=== PATIENT | female | born 1995 | race Caucasian/White ===

== ENCOUNTER 2021-02-08 08:28 | Outpatient (CLI) | payer MEDICAID ==
--- NOTE | 2021-02-08 10:10 | XRay Report ---
CHEST 2 VIEWS INDICATION: MORBID OBESITY. Preoperative evaluation COMPARISON: None FINDINGS: SUPPORT DEVICES: None. HEART: Within normal limits. LUNGS/PLEURA: No acute air space or interstitial disease. No pneumothorax. ADDITIONAL FINDINGS: None. IMPRESSION: 1. No acute findings. Signer Name: Adam Cunha MD Signed: 02/08/2021 10:05 AM Workstation Name: [id number]
--- NOTE | 2021-02-08 10:10 | Fluoroscopy Report ---
. Barium swallow Indication: MORBID OBESITY. Technique: Single and double contrast barium technique utilized to evaluate the esophagus. Findings: No mucosal irregularity, mass, mass effect, or critical stenosis. There were no abnormal tertiary c ontractions as seen with dysmotility. There was trace gastroesophageal reflux reaching the distal eso phagus. Impression: Trace gastroesophageal reflux. Fluoroscopic time: 0.4 minutes Number of fluoroscopic images: 9 Signer Name: Adam Cunha MD Signed: 02/08/2021 10:06 AM Workstation Name: [id number]
== END 2021-02-08 08:29 | disposition home or self-care (01) ==
LOC: FLUORO 08:28
PROVIDERS: ATTEND Surgery
DX: E66.01 Morbid (severe) obesity due to excess calories (principal)
CPT/HCPCS: 71046; 74220

== ENCOUNTER → 2021-02-12 | Outpatient (CLI) | payer MEDICAID | END | disposition home or self-care (01) | LOC: SLR 11:00 | PROVIDERS: ATTEND Surgery | DX: G47.30 Sleep apnea, unspecified (principal) | CPT/HCPCS: G0399 ==

== ENCOUNTER 2021-04-03 06:39 | Day surgery (SDC) | payer MEDICAID ==
[2021-04-03] MEDS ORDERED: SODIUM CHLORIDE 0.9% 1000 ML 1,000 ML IV SCH (07:00)
--- NOTE | 2021-04-03 07:48 | Anesthesia Day of Surgery ---
Anesthesia Day of Surgery - Day of Surgery Patient Examined: Yes Patient H&P Reviewed: Yes Patient is NPO: Yes
--- NOTE | 2021-04-03 07:48 | Anesthesia Consultation ---
Anesthesia Consult and Med Hx Date of service: 04/03/21 - Airway Anesthetic Teeth Evaluation: Good ROM Head & Neck: Adequate Mental/Hyoid Distance: Adequate Mallampati Class: Class I Intubation Access Assessment: Good - Pulmonary Exam CTA: Yes - Cardiac Exam Cardiac Exam: No Murmur - Pre-Operative Health Status ASA Pre-Surgery Classification: ASA3 Proposed Anesthetic Plan: MAC - Pre-Anesthesia Comment Pre-Anesthesia Comments: stroke 2017. numbness to right side - Pulmonary Hx Smoking: No Hx Asthma: No - Cardiovascular System Hx Hypertension: No - Central Nervous System Hx Seizures: No - Gastrointestinal Hx Gastroesophageal Reflux Disease: Yes
[2021-04-03] MEDS ORDERED: propofoL 200 MG/20 ML VIAL IV ONE (09:00)
[2021-04-03] MEDS ORDERED: LIDOCAINE MPF (2%) 20 MG/1 ML VIAL 5 ML ONE (09:00)
--- NOTE | 2021-04-03 09:05 | Operative Report ---
Operative Report Operative Report: DATE: 04/03/2021 SURGERY: Upper endoscopy. SURGEON: Mary Abraham M.D. PROCEDURE: EGD with biopsy PRE OP DX: morbid obesity, GERD POST OP DX: morbid obesity, GERD TYPE OF ANESTHESIA: MAC. ESTIMATED BLOOD LOSS: None. COMPLICATIONS: None. SPECIMENS REMOVED: antral biopsy, esophageal bx FINDINGS: 1. Small hiatal hernia. 2. esophagitis and antral gastritis INDICATIONS:INDICATION FOR PROCEDURE: Patient is a 25-year-old female with a long history of morbid obesity. She is planned to have a weight loss procedure and is here for preoperative planning EGD. PROCEDURE DETAILS: After consent was reviewed, patient was taken back to the operating room where patient was placed in the left lateral decubitus position and a bite block was placed in the mouth. After a time-out was called, MAC anesthesia was initiated. I then passed the endoscope into her oropharynx, into her esophagus, visualized the entire esophagus. Distal esophagtitis was noted with an irregular Z-line was noted to about 35 cm from incisors. A cold biopsy was taken of the z-line. I then visualized the stomach and the first portion of the duodenum and there were no abnormalities I could clearly visualize except for antral gastritis. A cold forceps biopsy of the antrum was taken and will be sent to pathology to evaluate for H.pylori. I then retroflexed the scope in the stomach and visualized the hiatus and I could see a small hiatal hernia. I then desufflated the stomach and removed the endoscope. Patient tolerated procedure well and was transferred to recovery room in good and stable condition.
--- NOTE | 2021-04-03 09:07 | Discharge Summary ---
Providers - Providers Date of Admission: 04/03/2021 Date of discharge: 04/03/21 Attending physician: KASSANDRA JUNIOR MD Primary care physician: STEPHANI SEVILLA MD Hospitalization Reason for admission: pre-op egd for planned surgery Condition: Good Procedures: egd with bx Hospital course: Pt presented for a pre-op EGD as part of planning for up coming bariatric surgery. Procedure was uneventful and pt recovered well and was discharged to home. Disposition: 01 HOME / SELF CARE / HOMELESS Final Discharge Diagnosis (Prints w/discharge instructions): morbid obesity, gerd Core Measure Documentation - Palliative Care Palliative Care/ Comfort Measures: Not Applicable - Core Measures Any of the following diagnoses?: none Exam - Physical Exam Narrative exam: unchanged from pre-op Plan Activity: advance as tolerated Diet: low carbohydrate Follow up with: STEPHANI SEVILLA MD [Primary Care Provider] - 7 Days
[2021-04-03] MEDS ORDERED: MIDAZOLAM 2 MG/2 ML INJ ONE (09:16)
[2021-04-03 14:03] VITALS: BP 139/77
--- NOTE | 2021-04-03 14:08 | Post Anesthesia Evaluation ---
- Post Anesthesia Evaluation Patient Participated: Yes Airway Patent: Yes Stable Respiratory Function: Yes Nausea/Vomiting: No Temp > 96.8F: Yes Pain Manageable: Yes Adequeate Hydration: Yes Anesthesia Complications: No Block Receding Appropriately: Not Applicable Patient on Ventilator: No
== END 2021-04-03 11:00 | disposition home or self-care (01) ==
LOC: GIO 06:39
PROVIDERS: ATTEND Surgery
DX: K21.00 Gastro-esophageal reflux disease with esophagitis, without bleeding (principal); K44.9 Diaphragmatic hernia without obstruction or gangrene; K29.50 Unspecified chronic gastritis without bleeding; E66.01 Morbid (severe) obesity due to excess calories; Z91.041 Radiographic dye allergy status; Z79.899 Other long term (current) drug therapy; Z98.890 Other specified postprocedural states
CPT/HCPCS: 43239; 88305; 88342; J2250; J2704; J7030